=== PATIENT | female | born 1970 | race Caucasian/White ===

== ENCOUNTER 2018-01-01 05:15 | Observation (INO) | payer OTHER ==
[~2018-01-01] VITALS: Ht 170.2 cm; Wt 76.5 kg
[~2018-01-01 05:15] MED LIST: IBUP-1222 PO; TRAMADOL PO
[2018-01-01] MEDS ORDERED: TYLENOL PM PO (06:00)
[2018-01-01] MEDS ORDERED: LIDOCAINE-MPF 1%, 2ML INFIL ONE (06:00)
[2018-01-01] MEDS ORDERED: TRAMADOL PO (06:00)
[2018-01-01] MEDS ORDERED: PRILOSEC PO (06:00)
[2018-01-01 06:04] VITALS: BP 119/84
[2018-01-01] MEDS ORDERED: FUROSEMIDE 20 MG/2 ML ONE (06:14)
[2018-01-01] MEDS ORDERED: EPINEPHRINE 1 MG/ML, 1ML ONE (06:15)
[2018-01-01] MEDS ORDERED: INDIGO CARMINE 0.8%, 5ML ONE (06:15)
[2018-01-01] MEDS: LACTATED RINGERS 1,000 ML IV SCH ×3 (06:25→18:25)
[2018-01-01] MEDS ORDERED: LIDOCAINE/PF 0.5% ,50ML ONE (06:36)
[2018-01-01] MEDS ORDERED: GABAPENTIN 300 MG CAPSULE ONE (06:48)
[2018-01-01] MEDS ORDERED: FENTANYL PF 250 MCG/5ML ONE (06:49)
[2018-01-01] MEDS ORDERED: MIDAZOLAM 1 MG/ML, 2ML ONE (06:49)
[2018-01-01] MEDS ORDERED: OxyconTIN ER 20 MG TAB.ER ONE (06:49)
[2018-01-01] MEDS ORDERED: LIDOCAINE-MPF 2% ,5ML ONE ×4 (06:49→06:50)
[2018-01-01] MEDS ORDERED: FAMOTIDINE 20 MG TABLET ONE (06:49)
[2018-01-01] MEDS ORDERED: ONDANSETRON 2MG/ML, 2ML ONE (06:49)
[2018-01-01] MEDS ORDERED: PROPOFOL 10 MG/ML, 20ML ONE (06:50)
[2018-01-01] MEDS ORDERED: ROCURONIUM 10MG/ML,5ML ONE (06:52)
[2018-01-01] MEDS ORDERED: GABAPENTIN 300 MG CAPSULE PO ONE (07:00)
[2018-01-01] MEDS ORDERED: ACETAMINOPHEN 500 MG TABLET PO ONE (07:00)
[2018-01-01] MEDS ORDERED: FAMOTIDINE 20 MG TABLET PO ONE (07:00)
[2018-01-01] MEDS ORDERED: OxyconTIN ER 20 MG TAB.ER PO ONE (07:00)
[2018-01-01] MEDS ORDERED: ONDANSETRON 2MG/ML, 2ML IVPush ONE (07:00)
[2018-01-01] MEDS ORDERED: SCOPOLAMINE PATCH, 1.5MG PATCH.TD72 TD ONE ×2 (07:03→07:30)
[2018-01-01] MEDS ORDERED: PROPOFOL 50 ML ONE (07:10)
[2018-01-01] MEDS ORDERED: LIDOCAINE 1%, 50ML INFIL ONE (07:34)
[2018-01-01] MEDS ORDERED: DEXAMETHASONE 4 MG/ML, 1ML ONE (08:22)
[2018-01-01] MEDS ORDERED: KETOROLAC 30 MG/1 ML ONE ×2 (08:22→17:37)
[2018-01-01] MEDS ORDERED: MORPHINE SULFATE 4 MG/ML, 1ML ONE ×2 (08:23→08:25)
[2018-01-01] MEDS ORDERED: MEPERIDINE/PF 25MG/0.5ML IVPush PRN (08:30)
[2018-01-01] MEDS ORDERED: morphine SULFATE 10 MG/ML, 1ML IV PRN (08:30)
[2018-01-01] MEDS ORDERED: PROMETHAZINE 25 MG/ML, 1ML IV PRN (08:30)
[2018-01-01] MEDS ORDERED: OXYcodone 5 MG/5 ML ORAL.SOL UDC PO PRN (08:30)
[2018-01-01] MEDS ORDERED: FENTANYL PF 100 MCG/2ML ONE ×2 (08:41→09:12)
[2018-01-01] MEDS: FENTANYL PF 100 MCG/2ML IV PRN ×3 (08:42→09:14)
[2018-01-01] MEDS ORDERED: PROMETHAZINE 25 MG/ML, 1ML ONE (08:59)
[2018-01-01] MEDS ORDERED: DIPHENHYDRAMINE 50 MG/ML, 1ML IVPush PRN (11:30)
[2018-01-01] MEDS ORDERED: ONDANSETRON 2MG/ML, 2ML IVPush PRN (11:30)
[2018-01-01] MEDS ORDERED: HYDROmorphone 1 MG/ML, 1ML IV PRN (17:30)
[2018-01-01] MEDS: KETOROLAC 30 MG/1 ML IVPush SCH ×2 (17:42→23:59)
[2018-01-01 18:02] VITALS: BP 108/70
[2018-01-01] MEDS ORDERED: MORPHINE SULFATE 4 MG/ML, 1ML IVPush PRN (21:00)
[2018-01-02] VITALS: BP 100/63
[2018-01-02] MEDS: LACTATED RINGERS 1,000 ML IV SCH (02:00)
[2018-01-02 04:22] VITALS: BP 95/53
[2018-01-02] MEDS: KETOROLAC 30 MG/1 ML IVPush SCH (05:46)
[2018-01-02 06:43] VITALS: BP 93/60
[2018-01-02] MEDS ORDERED: HYDR-882 PO (09:10)
== END 2018-01-02 10:00 | disposition home or self-care (01) ==
LOC: OUT 05:15 → ORIP 17:02 → 4NOR 17:52 → DCLOUNGE 01-02 09:50
PROVIDERS: ADMIT Obstetrics & Gynecology Gynecology; ATTEND Obstetrics & Gynecology Gynecology
DX: N94.6 Dysmenorrhea, unspecified (principal); G89.29 Other chronic pain; Z87.410 Personal history of cervical dysplasia
CPT/HCPCS: 36415; 52000; 58260; 81025; 85014; 88307; 96374; 96375; 96376; G0378; J0171; J1100; J1885; J1940; J2250; J2405; J2550; J2704; J3010; J3490; J7120; J2001